=== PATIENT | female | born 1980 | race Caucasian/White ===

== ENCOUNTER 2017-06-09 15:52 | Outpatient (CLI) | payer OTHER | END 2017-06-09 15:58 | disposition home or self-care (01) | LOC: LAB 15:52 | DX: D68.0 Von Willebrand disease (principal); D50.0 Iron deficiency anemia secondary to blood loss (chronic); E03.8 Other specified hypothyroidism; E88.81 Metabolic syndrome and other insulin resistance; N92.0 Excessive and frequent menstruation with regular cycle; D68.8 Other specified coagulation defects; D50.8 Other iron deficiency anemias; D51.8 Other vitamin B12 deficiency anemias; I10 Essential (primary) hypertension ==

== ENCOUNTER 2017-09-07 11:43 | Outpatient (CLI) | payer OTHER | END 2017-09-07 14:39 | disposition home or self-care (01) | LOC: SONOGRAMA 11:43 | DX: E04.2 Nontoxic multinodular goiter (principal) ==

== ENCOUNTER 2019-05-01 09:30 | Outpatient (CLI) | payer OTHER | END 2019-05-01 09:54 | disposition home or self-care (01) | LOC: LAB 09:30 | DX: D50.8 Other iron deficiency anemias (principal); D50.0 Iron deficiency anemia secondary to blood loss (chronic); E06.3 Autoimmune thyroiditis; E88.81 Metabolic syndrome and other insulin resistance; N92.0 Excessive and frequent menstruation with regular cycle; D68.8 Other specified coagulation defects; D51.8 Other vitamin B12 deficiency anemias; I10 Essential (primary) hypertension ==

== ENCOUNTER 2020-09-10 12:15 | Inpatient (IN) | payer OTHER ==
[~2020-09-10] VITALS: Ht 165.1 cm; Wt 95.3 kg
[2020-09-10] MEDS ORDERED: SYNTHROID100 MCG PO (15:53)
[2020-09-10] MEDS ORDERED: MAGESTROL PO (15:54)
[2020-09-10] MEDS ORDERED: DDAVP0.1 MG PO (15:55)
[2020-09-10] MEDS ORDERED: NEURIN (15:55)
[2020-09-10] MEDS ORDERED: FUSION PLUS CA1 EACH PO (15:56)
[2020-09-10] MEDS ORDERED: B-100 COMPLEX100 MG PO (15:56)
[2020-09-16] MEDS ORDERED: DESMOPRESS10 MCG/0.1 (09:47)
[2020-09-16] MEDS ORDERED: VITAMIN B COMP0.4 MG (09:47)
[2020-09-16] MEDS ORDERED: ABANEU-SL TABL1 EACH (09:47)
[2020-09-16] MEDS ORDERED: MEGESTROL ACETA40 MG (09:47)
[2020-09-16] MEDS ORDERED: SYNTHROID88 MCG (09:47)
[2020-09-19] MEDS ORDERED: SIMETHICONE125 M1 PO (07:07)
[2020-09-19] MEDS ORDERED: NEURONTIN600 MG PO (07:07)
[2020-09-19] MEDS ORDERED: TRAMADOL HCL50 MG PO (07:07)
[2020-09-19] MEDS ORDERED: DUI500 PO (07:07)
== END 2020-09-19 10:05 | disposition home or self-care (01) | DRG 742 ==
LOC: OB/GYN 09-16 05:10 → O/R 09-16 05:10 → SURH 09-16 07:00 → OB/GYN 09-16 10:01 → SURH 09-16 12:15 → OB/GYN 09-19 10:05
PROVIDERS: ADMIT Obstetrics & Gynecology; ATTEND Obstetrics & Gynecology
PROC: 0UB60ZZ Excision of Left Fallopian Tube, Open Approach (ICD-10-PCS; 2020-09-16)
PROC: 0UT00ZZ Resection of Right Ovary, Open Approach (ICD-10-PCS; 2020-09-16)
PROC: 0UT50ZZ Resection of Right Fallopian Tube, Open Approach (ICD-10-PCS; 2020-09-16)
PROC: 0UT90ZZ Resection of Uterus, Open Approach (ICD-10-PCS; principal; 2020-09-16 07:00)
DX: N80.0 Endometriosis of uterus (principal); D68.0 Von Willebrand disease; D62 Acute posthemorrhagic anemia; N80.1 Endometriosis of ovary; N83.291 Other ovarian cyst, right side; N72 Inflammatory disease of cervix uteri; N93.9 Abnormal uterine and vaginal bleeding, unspecified; R10.2 Pelvic and perineal pain; I10 Essential (primary) hypertension; E66.9 Obesity, unspecified; E06.3 Autoimmune thyroiditis